=== PATIENT | male | born 1950 | race Two or more races ===

== ENCOUNTER 2021-07-23 10:15 | Inpatient (IN) | payer OTHER ==
[~2021-07-23] VITALS: Ht 172.7 cm; Wt 108.9 kg
[2021-07-26] MEDS ORDERED: PERCOCET 5-3251 EACH PO (07:21)
[2021-07-26] MEDS ORDERED: MEDROLPACK PO (07:21)
== END 2021-07-28 11:26 | disposition home health service (06) | DRG 473 ==
LOC: O/R 07-26 05:00 → PED 07-26 05:00 → SURH 07-26 07:00 → PED 07-26 13:48
PROVIDERS: ADMIT Orthopaedic Surgery Orthopaedic Surgery of the Spine; ATTEND Orthopaedic Surgery Orthopaedic Surgery of the Spine
PROC: 0RT30ZZ Resection of Cervical Vertebral Disc, Open Approach (ICD-10-PCS; 2021-07-26)
PROC: 0PB30ZZ Excision of Cervical Vertebra, Open Approach (ICD-10-PCS; 2021-07-26)
PROC: 07DS0ZZ Extraction of Vertebral Bone Marrow, Open Approach (ICD-10-PCS; 2021-07-26)
PROC: 0RG20A0 Fusion of 2 or more Cervical Vertebral Joints with Interbody Fusion Device, Anterior Approach, Anterior Column, Open Approach (ICD-10-PCS; principal; 2021-07-26 07:00)
DX: M50.021 Cervical disc disorder at C4-C5 level with myelopathy (principal); M48.02 Spinal stenosis, cervical region; I10 Essential (primary) hypertension; Z98.1 Arthrodesis status; Z20.822 Contact with and (suspected) exposure to COVID-19

== ENCOUNTER 2024-12-17 12:00 | Inpatient (IN) | payer OTHER ==
[~2024-12-17] VITALS: Ht 172.7 cm; Wt 95.3 kg
[~2024-12-17 12:00] MED LIST: MEDROLPACK PO; PERCOCET 5-3251 EACH PO
[2024-12-17] MEDS ORDERED: NEURONTIN600 M1 (14:40)
[2024-12-17] MEDS ORDERED: LISINOPRIL (14:41)
[2024-12-23] MEDS ORDERED: ZOFRAN8 MG PO (09:55)
[2024-12-23] MEDS ORDERED: COLACE100 MG PO (09:55)
[2024-12-23] MEDS ORDERED: MEDROLPACK PO (09:55)
[2024-12-23] MEDS ORDERED: PERCOCET 5-3251 EACH PO (09:55)
[2024-12-23] MEDS ORDERED: VANCOMYCIN HCL 1,000 MG VIAL ONE (13:59)
[2024-12-23] MEDS ORDERED: CEFAZOLIN SODIUM 1,000 MG VIAL ONE (13:59)
[2024-12-23] MEDS ORDERED: ENALAPRILAT DIHYDRATE 1.25 MG/ML VIAL IV PRN (15:15)
[2024-12-23] MEDS ORDERED: 0.9 % SODIUM CHLORIDE 1,000 ML IV SCH (15:15)
[2024-12-23] MEDS ORDERED: PROMETHAZINE HCL 50 MG/ML AMPUL IM PRN (15:15)
[2024-12-23] MEDS ORDERED: HEMOSTATIC MATRIX WITH THROMBIN KIT TOP ONE (15:22)
[2024-12-23] MEDS ORDERED: METHYLPREDNISOLONE ACETATE 80 MG/ML VIAL ONE (16:06)
[2024-12-23] MEDS ORDERED: METHYLPREDNISOLONE SOD SUCC 125 MG VIAL IV SCH (17:00)
[2024-12-23] MEDS ORDERED: MORPHINE SULFATE 4 MG/ML CARTRIDGE IV SCH (17:00)
[2024-12-23] MEDS ORDERED: CEFAZOLIN SODIUM 1,000 MG in 0.9 % SODIUM CHLORIDE 50 ML IV SCH (17:00)
[2024-12-23] MEDS ORDERED: FAMOtidine 20 MG TABLET PO SCH (17:00)
[2024-12-23] MEDS ORDERED: DOCUSATE SODIUM 100MG CAP PO SCH (17:00)
[2024-12-23] MEDS ORDERED: METHYLPREDNISOLONE SOD SUCC 125 MG VIAL ONE (17:11)
[2024-12-23] MEDS ORDERED: ACETAMINOPHEN 500 MG GEL..CAP PO SCH (20:00)
[2024-12-23] MEDS ORDERED: VANCOMYCIN HCL 1,000 MG VIAL IV SCH (21:00)
[2024-12-23 22:14] VITALS: BP 160/100; O2SAT 100
[2024-12-23 22:30] VITALS: O2SAT 99
[2024-12-24] VITALS: O2SAT 98
[2024-12-24] MEDS ORDERED: SODIUM CHLORIDE 0.45 % 1,000 ML IV SCH
[2024-12-24 01:02] VITALS: BP 156/88; O2SAT 98
[2024-12-24 05:12] VITALS: O2SAT 98
[2024-12-24] MEDS ORDERED: OxyCODONE HCL 5 MG TABLET (ROXICODONE) PO PRN (06:01)
[2024-12-24] MEDS ORDERED: VANCOMYCIN HCL 1,000 MG VIAL ONE (06:52)
[2024-12-24 08:00] VITALS: BP 150/79; O2SAT 95
[2024-12-24 08:54] VITALS: O2SAT 99
[2024-12-24] MEDS ORDERED: LISINOPRIL 10 MG TABLET PO SCH (09:00)
[2024-12-24] MEDS ORDERED: TAMSULOSIN HCL 0.4 MG CAP PO SCH (09:00)
== END 2024-12-24 12:03 | disposition home or self-care (01) | DRG 472 ==
LOC: O/R 12-23 08:13 → SURH 12-23 12:00
PROVIDERS: ADMIT Orthopaedic Surgery Orthopaedic Surgery of the Spine; ATTEND Orthopaedic Surgery Orthopaedic Surgery of the Spine
PROC: 0RT30ZZ Resection of Cervical Vertebral Disc, Open Approach (ICD-10-PCS; 2024-12-23)
PROC: 0PB40ZZ Excision of Thoracic Vertebra, Open Approach (ICD-10-PCS; 2024-12-23)
PROC: 07DS0ZZ Extraction of Vertebral Bone Marrow, Open Approach (ICD-10-PCS; 2024-12-23)
PROC: 4A1104G Monitoring of Peripheral Nervous Electrical Activity, Intraoperative, Open Approach (ICD-10-PCS; 2024-12-23)
PROC: 4A12X4Z Monitoring of Cardiac Electrical Activity, External Approach (ICD-10-PCS; 2024-12-23)
PROC: 0RG10A0 Fusion of Cervical Vertebral Joint with Interbody Fusion Device, Anterior Approach, Anterior Column, Open Approach (ICD-10-PCS; principal; 2024-12-23 13:30)
DX: M50.21 Other cervical disc displacement, high cervical region (principal); M47.12 Other spondylosis with myelopathy, cervical region; I10 Essential (primary) hypertension; Z98.1 Arthrodesis status; M48.02 Spinal stenosis, cervical region

== ENCOUNTER 2025-04-19 12:30 | Inpatient (IN) | payer OTHER ==
[~2025-04-19] VITALS: Ht 243.8 cm; Wt 90.7 kg
[~2025-04-19 12:30] MED LIST changes: +COLACE100 MG PO; +LISINOPRIL; +NEURONTIN600 M1; +ZOFRAN8 MG PO
[2025-04-25] MEDS ORDERED: COLACE100 MG PO (10:22)
[2025-04-25] MEDS ORDERED: MEDROLPACK PO (10:22)
[2025-04-25] MEDS ORDERED: PERCOCET 5-3251 EACH PO (10:22)
[2025-04-25] MEDS ORDERED: AMOX-CLAV 875-1 EACH PO (10:22)
[2025-04-25] MEDS ORDERED: ZOFRAN8 MG PO (10:23)
[2025-04-25] MEDS ORDERED: 0.9 % SODIUM CHLORIDE 1,000 ML IV SCH (10:30)
[2025-04-25] MEDS ORDERED: ENALAPRILAT DIHYDRATE 1.25 MG/ML VIAL IV PRN (10:30)
[2025-04-25] MEDS ORDERED: PROMETHAZINE HCL 50 MG/ML AMPUL IM PRN (10:30)
[2025-04-25] MEDS ORDERED: DOCUSATE SODIUM 100MG CAP PO SCH (13:00)
[2025-04-25] MEDS ORDERED: MORPHINE SULFATE 4 MG/ML CARTRIDGE IV SCH (13:00)
[2025-04-25] MEDS ORDERED: CEFAZOLIN SODIUM 1,000 MG in 0.9 % SODIUM CHLORIDE 50 ML IV SCH (17:00)
[2025-04-25] MEDS ORDERED: METHYLPREDNISOLONE SOD SUCC 125 MG VIAL IV SCH (17:00)
[2025-04-25] MEDS ORDERED: ENALAPRILAT DIHYDRATE 1.25 MG/ML VIAL IV ONE (19:30)
[2025-04-25] MEDS ORDERED: ACETAMINOPHEN 500 MG GEL..CAP PO SCH (20:00)
[2025-04-25] MEDS ORDERED: VANCOMYCIN HCL 1,000 MG VIAL IV SCH (21:00)
[2025-04-25] MEDS ORDERED: GABAPENTIN 800 MG TABLET PO SCH (21:00)
[2025-04-25 22:30] VITALS: BP 130/86; O2SAT 99
[2025-04-26] MEDS ORDERED: SODIUM CHLORIDE 0.45 % 1,000 ML IV SCH
[2025-04-26 00:30] VITALS: BP 132/81; O2SAT 99
[2025-04-26] MEDS ORDERED: OxyCODONE HCL 5 MG TABLET (ROXICODONE) PO PRN (06:01)
[2025-04-26 08:12] VITALS: BP 141/81; O2SAT 97
[2025-04-26] MEDS ORDERED: TAMSULOSIN HCL 0.4 MG CAP PO SCH (09:00)
[2025-04-26] MEDS ORDERED: LISINOPRIL 10 MG TABLET PO SCH (09:00)
[2025-04-26 10:59] LABS: BASO % 0.3 % (0.1-1.2); EOS # 0.01 (0.04-0.54); EOS % 0.1 % (0.7-7.0); LYMPH # 0.39 (1.18-3.74); LYMPH % 3.6 % (19.3-53.1); MEAN PLATELET VOLUME 10.50 fl (9.4-12.4); MONO # 0.47 (0.24-0.82); MONO % 4.4 % (4.7-12.5); NEUT # 9.80 (1.56-6.13); NEUT % 91.3 % (34.0-71.1); RED CELL DISTRIBUTION WIDTH 11.9 % (11.6-14.4)
[2025-04-26 11:33] LABS: ALT/SGPT 28.0 U/L (12-78); AST/SGOT 26.0 U/L (15-37); BILIRUBIN TOTAL 1.53 mg/dL (0.3-1.2); BUN CREA RATIO 13.0 (7.0-25.0); CREATININE SERUM 0.94 mg/dL (0.70-1.30); GFR 78.23; GLOBULINA 3.3 G/DL (2.4-3.5); GLUCOSE FASTING 112.0 mg/dL (65-100); OSMOLALITY SERUM 278.0 MOSM/KG (275-295)
[2025-04-26 13:10] LABS: COVID-19 AG NEGATIVE (NEGATIVE)
[2025-04-26] MEDS ORDERED: METHYLPREDNISOLONE ACETATE 80 MG/ML VIAL ONE (15:09)
[2025-04-26] MEDS ORDERED: CHLORHEXIDINE GLUCONATE 120 ML BOTTLE TOP ONE (15:10)
[2025-04-26] MEDS ORDERED: METHYLPREDNISOLONE SOD SUCC 125 MG VIAL ONE ×2 (15:10→20:11)
[2025-04-26] MEDS ORDERED: ENALAPRILAT DIHYDRATE 1.25 MG/ML VIAL IV PRN (16:45)
[2025-04-26] MEDS ORDERED: 0.9 % SODIUM CHLORIDE 1,000 ML IV SCH (16:45)
[2025-04-26] MEDS ORDERED: PROMETHAZINE HCL 50 MG/ML AMPUL IM PRN (16:45)
[2025-04-26] MEDS ORDERED: MORPHINE SULFATE 4 MG/ML CARTRIDGE IV SCH (17:00)
[2025-04-26] MEDS ORDERED: CEFAZOLIN SODIUM 1,000 MG in 0.9 % SODIUM CHLORIDE 50 ML IV SCH (17:00)
[2025-04-26] MEDS ORDERED: DOCUSATE SODIUM 100MG CAP PO SCH (17:00)
[2025-04-26] MEDS ORDERED: METHYLPREDNISOLONE SOD SUCC 125 MG VIAL IV SCH (17:00)
[2025-04-26] MEDS ORDERED: CEFAZOLIN SODIUM 1,000 MG VIAL ONE (17:17)
[2025-04-26] MEDS ORDERED: VANCOMYCIN HCL 1,000 MG VIAL ONE ×2 (17:17→21:23)
[2025-04-26] MEDS ORDERED: HEMOSTATIC MATRIX WITH THROMBIN KIT TOP ONE ×2 (18:33→18:36)
[2025-04-26] MEDS ORDERED: VISTASEAL DUAL APPICATOR 1 EACH APPL TOP ONE (18:34)
[2025-04-26] MEDS ORDERED: THROMBIN,HU/FIBRINOGEN/CALCIUM 10 ML SYRINGE TOP ONE (18:34)
[2025-04-26] MEDS ORDERED: TRANEXAMIC ACID 100MG/1ML (1000MG) AMPUL ONE (18:48)
[2025-04-26] MEDS ORDERED: ACETAMINOPHEN 500 MG GEL..CAP PO SCH (20:00)
[2025-04-26] MEDS ORDERED: VANCOMYCIN HCL 1,000 MG VIAL IV SCH (21:00)
[2025-04-26] MEDS ORDERED: GABAPENTIN 800 MG TABLET PO SCH (21:00)
[2025-04-27] MEDS ORDERED: SODIUM CHLORIDE 0.45 % 1,000 ML IV SCH
[2025-04-27] MEDS ORDERED: CEFAZOLIN SODIUM 1,000 MG VIAL ONE (01:49)
[2025-04-27] MEDS ORDERED: METHYLPREDNISOLONE SOD SUCC 125 MG VIAL ONE (01:49)
[2025-04-27 03:08] VITALS: BP 134/74; O2SAT 97
[2025-04-27] MEDS ORDERED: OxyCODONE HCL 5 MG TABLET (ROXICODONE) PO PRN (06:01)
[2025-04-27 06:25] LABS: BASO % 0.2 % (0.1-1.2); EOS # 0.00 (0.04-0.54); EOS % 0.0 % (0.7-7.0); LYMPH # 0.38 (1.18-3.74); LYMPH % 2.0 % (19.3-53.1); MEAN PLATELET VOLUME 10.80 fl (9.4-12.4); MONO # 0.62 (0.24-0.82); MONO % 3.3 % (4.7-12.5); NEUT # 17.79 (1.56-6.13); NEUT % 93.8 % (34.0-71.1); RED CELL DISTRIBUTION WIDTH 12.1 % (11.6-14.4)
[2025-04-27 06:50] LABS: BUN CREA RATIO 14.0 (7.0-25.0); CREATININE SERUM 1.11 mg/dL (0.70-1.30); GFR 64.58; GLUCOSE FASTING 182.0 mg/dL (65-100); OSMOLALITY SERUM 289.0 MOSM/KG (275-295)
[2025-04-27] MEDS ORDERED: VANCOMYCIN HCL 1,000 MG VIAL ONE (07:02)
[2025-04-27 08:13] VITALS: BP 115/64; O2SAT 98
[2025-04-27] MEDS ORDERED: LISINOPRIL 10 MG TABLET PO SCH (09:00)
[2025-04-27] MEDS ORDERED: TAMSULOSIN HCL 0.4 MG CAP PO SCH (09:00)
[2025-04-28 00:30] VITALS: BP 129/74; O2SAT 96
[2025-04-28 07:42] VITALS: BP 130/76; O2SAT 96
[2025-04-28 16:00] VITALS: BP 121/67; O2SAT 98
[2025-04-29] VITALS: BP 128/73; O2SAT 97
[2025-04-29 08:01] VITALS: BP 127/66; O2SAT 95
== END 2025-04-29 13:06 | DRG 427 ==
LOC: O/R 04-25 10:00 → SURG 04-25 10:00 → SURH 04-25 12:30 → SURG 04-25 18:54
PROVIDERS: Emergency Medicine Pediatric Emergency Medicine; ADMIT Orthopaedic Surgery Orthopaedic Surgery of the Spine; ATTEND Orthopaedic Surgery Orthopaedic Surgery of the Spine
PROC: 0SG10AJ Fusion of 2 or more Lumbar Vertebral Joints with Interbody Fusion Device, Posterior Approach, Anterior Column, Open Approach (ICD-10-PCS; 2025-04-26)
PROC: 0SG10K0 Fusion of 2 or more Lumbar Vertebral Joints with Nonautologous Tissue Substitute, Anterior Approach, Anterior Column, Open Approach (ICD-10-PCS; 2025-04-26)
PROC: 0SG10K1 Fusion of 2 or more Lumbar Vertebral Joints with Nonautologous Tissue Substitute, Posterior Approach, Posterior Column, Open Approach (ICD-10-PCS; 2025-04-26)
PROC: 0ST20ZZ Resection of Lumbar Vertebral Disc, Open Approach (ICD-10-PCS; 2025-04-26)
PROC: 0QB30ZX Excision of Left Pelvic Bone, Open Approach, Diagnostic (ICD-10-PCS; 2025-04-26)
PROC: 07DR0ZZ Extraction of Iliac Bone Marrow, Open Approach (ICD-10-PCS; 2025-04-26)
PROC: 4A1104G Monitoring of Peripheral Nervous Electrical Activity, Intraoperative, Open Approach (ICD-10-PCS; 2025-04-26)
PROC: 4A12X4Z Monitoring of Cardiac Electrical Activity, External Approach (ICD-10-PCS; 2025-04-26)
PROC: 0T9B80Z Drainage of Bladder with Drainage Device, Via Natural or Artificial Opening Endoscopic (ICD-10-PCS; 2025-04-26)
PROC: 0SG10A0 Fusion of 2 or more Lumbar Vertebral Joints with Interbody Fusion Device, Anterior Approach, Anterior Column, Open Approach (ICD-10-PCS; principal; 2025-04-26 14:00)
DX: M48.062 Spinal stenosis, lumbar region with neurogenic claudication (principal); N99.72 Accidental puncture and laceration of a genitourinary system organ or structure during other procedure; M51.362 Other intervertebral disc degeneration, lumbar region with discogenic back pain and lower extremity pain; I10 Essential (primary) hypertension; E66.9 Obesity, unspecified; Z98.1 Arthrodesis status; M47.816 Spondylosis without myelopathy or radiculopathy, lumbar region; N40.0 Benign prostatic hyperplasia without lower urinary tract symptoms